=== PATIENT | male | born 1985 | race Caucasian/White ===

== ENCOUNTER 2018-10-16 14:46 | Emergency (ER) | payer MEDICAID ==
[~2018-10-16] VITALS: Ht 167.6 cm; Wt 110.7 kg
[2018-10-16 15:09] VITALS: BP 122/66
--- NOTE | 2018-10-16 15:13 | NUR ---
PATIENT TO LOBBY.NO BED AVAIL. AT THIS TIME. NO DISTRESS.
--- NOTE | 2018-10-16 17:10 | NUR ---
PATIENT AMBULATED TO ER BED 12.
--- NOTE | 2018-10-16 17:14 | NUR ---
PT C/O COUGH WITH CHEST DISCOMFORT. OFF AND ON FOR 2 WEEKS. PATIENT STATES PAIN OF 0/10 AT THIS TIME; VSS; PATIENT POSITIONED FOR COMFORT; HOB ELEVATED; BEDRAILS UP X1; BED DOWN. ER MD MADE AWARE OF PT STATUS.
[2018-10-16 19:44] VITALS: BP 119/72
--- NOTE | 2018-10-16 19:44 | NUR ---
DPatient discharged with v/s stable. Written and verbal after care instructions given and explained. Patient alert, oriented and verbalized understanding of instructions. Ambulatory with steady gait. All questions addressed prior to discharge. ID band removed. Patient advised to follow up with PMD. Rx of PREDNISONE 50MG, ANGELITO 180MCG/ACTUATION, FLONASE 50MG AND PROMETHAZINE HYDROCHLORIDE/DEXTROMETHORPHAN 6.25MG-15MG/5ML given. Patient educated on indication of medication including possible reaction and side effects. Opportunity to ask questions provided and answered.
== END 2018-10-16 19:44 | disposition home or self-care (01) ==
LOC: MED 14:46
DX: J30.9 Allergic rhinitis, unspecified (principal); F17.210 Nicotine dependence, cigarettes, uncomplicated
CPT/HCPCS: 99283